=== PATIENT | female | born 1970 | race Caucasian/White ===

== ENCOUNTER → 2024-11-02 14:03 | Outpatient (CLI) | payer OTHER, SELFPAY ==
--- NOTE | 2024-11-02 14:07 | DI.RAD.S_ITS ---
PROCEDURE: XR DEXA AXIAL SKELETON INDICATIONS: SCREENING COMPARISON: None. FINDINGS: Lumbar Spine: Bone mineral density is 0.885 g/cm2, T score -1.5, osteopenia. Left Femoral Neck: Bone mineral density 0.683 g/cm2, T score -1.5, osteopenia. Left Hip: Bone mineral density 0.781 g/cm2, T score -1.3, osteopenia. Fracture Risk Calculation (when applicable): 10-year fracture risk of a major osteoporotic fracture 6.1 percent and of a hip fracture 0.5 percent. (T score greater or equal to -1.0 to: NORMAL) (T score from -1.1 to -2.4: OSTEOPENIA) (T score less than or equal to -2.5: OSTEOPOROSIS) IMPRESSION: Osteopenia elevates the patient's 10 year fracture risk as described. Follow-up guidelines as follows: Osteoporosis: Consider a repeat DEXA and Vertebral Fracture Assessment (VFA) exam in 2 years or sooner if medically necessary, to reassess this patient's status. Osteopenia: Consider a repeat DEXA in 2-3 years to reassess this patient's status, or if there is a new clinical indication. Normal: Consider a repeat DEXA in 5 years or sooner, or if there is a new clinical indication. All treatment decisions require clinical judgment and consideration of individual patient factors, including patient preferences, comorbidities, previous drug use, risk factors not captured in the FRAX model (e.g., frailty, falls, vitamin D deficiency, increased bone turnover, interval significant decline in bone density ) and possible under- or over-estimation of fracture risk by FRAX. In addition, the [employer]F Guide recommends that FDA-approved medical therapies be considered in postmenopausal women and men age >= 50 years with a: * Hip or vertebral (clinical or morphometric) fracture * T-score of <=-2.5 at the spine or hip * Ten-year fracture probability by FRAX of >= 3% for hip fracture or >=20% for major osteoporotic fracture. Dictated by: Olga Inman M.D. on 11/03/2024 at 12:19 Approved by: Olga Inman M.D. on 11/03/2024 at 12:19
== END ==
PROVIDERS: PCP Internal Medicine; Referring Provider Internal Medicine
DX: M85.89 Other specified disorders of bone density and structure, multiple sites (principal); N95.1 Menopausal and female climacteric states; Z91.89 Other specified personal risk factors, not elsewhere classified
CPT/HCPCS: 77080

== ENCOUNTER → 2025-05-11 10:43 | Outpatient (CLI) | payer OTHER, SELFPAY ==
[2025-05-11 19:32] LABS: Cholesterol 211 mg/dL (140-199); HDL Cholesterol 65 mg/dL (40-60); Triglycerides 37 mg/dL (35-150)
[2025-05-11 19:40] LABS: Hemoglobin A1C% w Est Avg Glu 5.2 % (4.0-6.0)
[2025-05-15 04:53] LABS: CRP, High Sensitivity 0.50 mg/L (0.00-3.00); Cholesterol, Total 226 mg/dL (100-199); HDL-Particle (Total) 30.0 umol/L (>=30.5); LDL Particle 1615 nmol/L (<1000); LDL-Cholsterol 151 mg/dL (0-99); Small LDL- Particle 282 nmol/L (<=527); Triglycerides 40 mg/dL (0-149)
== END ==
PROVIDERS: PCP Internal Medicine; Visit Provider Internal Medicine
DX: E78.5 Hyperlipidemia, unspecified (principal)
CPT/HCPCS: 80061; 83036; 83704; 86140